=== PATIENT | female | born 1940 | race Hispanic/Latino ===

== ENCOUNTER 2021-07-27 06:32 | Day surgery (SDC) | payer OTHER ==
--- NOTE | 2021-07-22 14:59 | RAD REPORT ---
EXAM DESCRIPTION: David Salazar (2 Views)07/22/2021 2:52 pm CLINICAL HISTORY: Preop for vaginal prolapse repair COMPARISON: None FINDINGS: The lungs appear clear of acute infiltrate. The heart is normal size IMPRESSION: No acute abnormalities displayed
[2021-07-22 15:14] LABS: Absolute Lymphocytes (CBC) 1.7 K/uL (0.7-4.9); MPV 8.3 fL (7.6-11.3); RBC Red Blood Cell Count 3.92 M/uL (3.86-4.86)
[2021-07-22 15:18] LABS: Protime INR 0.92
[2021-07-22 15:23] LABS: Urine Appearance CLEAR (Clear); Urine Bilirubin NEGATIVE (Negative); Urine Blood Trace-intact (Negative); Urine Color YELLOW (Yellow); Urine Glucose NEGATIVE (Negative); Urine Microscopic Reflex ORDER UMIC; Urine Protein NEGATIVE (Negative); Urine Urobilinogen 0.2 mg/dL (0.2-1.0); Urine pH 5.5 (5.0-7.0)
[2021-07-22 15:26] LABS: Urine Bacteria <20 /HPF (<20); Urine RBC <5 /HPF (NONE SEEN)
[2021-07-22 15:31] LABS: Potassium 3.8 mmol/L (3.5-5.1)
--- NOTE | 2021-07-24 14:53 | EKG ---
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
[2021-07-27] MEDS ORDERED: Ringers Lactate 1,000 ML IV ONE (06:43)
[2021-07-27] MEDS ORDERED: CEFAZOLIN SODIUM 1 GM/VIAL ONE (07:01)
[2021-07-27] MEDS ORDERED: NA CHLORIDE 0.9% 100 ML IV ONE (07:02)
[2021-07-27] MEDS ORDERED: LIDOCAINE 1% W/EPI 1:100,000 MDV 20 ML VIAL ONE (07:02)
[2021-07-27] MEDS ORDERED: FENTANYL CITR 100 MCG/2 ML ONE ×2 (07:17→09:07)
[2021-07-27] MEDS ORDERED: propofoL 200 MG/20 ML VIAL IV ONE (07:18)
[2021-07-27] MEDS ORDERED: MIDAZOLAM HCL 2 MG/2 ML INJ ONE (07:19)
[2021-07-27] MEDS ORDERED: ONDANSETRON 4 MG/2 ML VIAL ONE (07:19)
[2021-07-27] MEDS ORDERED: LIDOCAINE 2% MPF 5 ML VIAL ONE (07:19)
[2021-07-27] MEDS ORDERED: GLYCOPYRROLATE 0.2 MG/ML SYR ONE ×2 (07:20)
[2021-07-27] MEDS ORDERED: ROCURONIUM 50 MG/5 ML VIAL IV ONE (07:20)
[2021-07-27] MEDS ORDERED: EPHEDRINE SULF 50 MG/ML VIAL ONE (07:20)
[2021-07-27] MEDS ORDERED: NEOSTIGMINE 1 MG/ML -10 ML VIAL ONE (07:21)
[2021-07-27] MEDS: CEFAZOLIN/SWI 2gm 2 GM/20 ML SYR ONE ×2 (07:40→07:44)
[2021-07-27] MEDS: VASOPRESSIN 20 UNIT/ML VIAL ONE ×2 (07:43→08:18)
[2021-07-27] MEDS ORDERED: dexAMETHasone 10 MG/ML VIAL ONE (08:28)
[2021-07-27] MEDS ORDERED: PROMETHAZINE INJ 25 MG/ML AMP IV PRN (10:22)
[2021-07-27] MEDS ORDERED: MORPHINE 2 MG/ML SYR IV PRN (10:22)
--- NOTE | 2021-07-27 10:38 | P.BOP ---
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
[2021-07-27 11:48] VITALS: BMI 23.3
[2021-07-27] MEDS: ACETAMINOPHEN 500 MG TAB PO PRN ×3 (12:00→20:37)
--- NOTE | 2021-07-27 13:45 | OP ---
Date of Procedure: 07/27/2021 Surgeon: Mariia Saucedo MD Conservation Assistant: Sindy New. 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 Procedures Performed: Complete colpocleisis, posterior wall repair, perineal body and perineocele re pair, then mid urethral sling through a transobturator approach (FAIZAN sling), cystoscopy. Estimated Blood Loss: Minimal. Urine Output: 100. Specimens: None. Anesthesia: General. Complications: No complications. Drains: Pool catheter. Disposition: Transferred to the recovery room in a stable condition. Findings: -2, +1, +3, 4.5, moderate; 5.5, 0, +2, and apical defect was prominent. There was a stitc h granuloma at the apical aspect and then significant amount of scarring and lack of good connective tissue in the anterior and posterior compartments on the proximal parts. After the procedure was completed, the vaginal length was only 2.5 cm. The perineal body was well re constructed and the sling was placed without any problems. Procedure In Detail: After informed consent was verified, she was taken back to the OR, placed in [place] fashion on the operating table. 2 g of Ancef were given. SCDs were started. Time-out was done . The patient was placed in a supine fashion on the operating table and general anesthesia was given . She was placed in a dorsal lithotomy position using Martinez stirrups. Lower abdomen, vulva, vagina, and perineum were prepped and draped in a sterile fashion. Pool was placed to drain the bladder an d examination was done and POP-Q was documented. Rectovaginal exam was performed as well to realize the perineocele right above the level of the exter nal sphincter, which was intact. Pool was clamped and retracted superiorly. Trapezoid drawing was made on the anterior wall that was to be de-epithelialized same in the posterior compartment as well. The apex was held with 2 Allis c lamps and this was done. Once the markings were placed making sure that I was proximal to the UVJ, d ilute vasopressin was injected in the anterior compartment first. Then, a 15 blade used to make an i ncision all around the trapezoid marking. Then, vaginal epithelium on the anterior wall was peeled o ff with the help of Allis clamps and a 15 blade. Once this was completely de-epithelialized, then I went to the posterior compartment, similarly levon out the area that was to be denuded, injected with dilute vasopressin. Allis clamps and knife were used to denude this area. Once this was done, there was still about 1.5 to 2 cm length of the posterior wall on left, which had a defect and plan was to bring the perineal body together nicely and the perineocele repair to reconstruct the whole area to prevent recurrence. Then, once the exposure was adequate in the anterior and posterior compartments, 2-0 Vicryl suture wa s taken in a continuous running fashion to invaginate the tiny strip of vaginal epithelium that was l eft on the top at the apex to create almost a channel like area, but for attachment to be adequate fr om the anterior to the posterior wall. In a continuous running fashion, transverse suturing was done and then right lateral all the way to the proximal part of the denuded area. On the opposite side, similar closure was performed with 2-0 Vicryl in a continuous running fashion a nd this invaginated the entire anterior and posterior compartment adequately. Attention was directed to the posterior compartment and dilute vasopressin was injected. A rose-s haped incision was made with the triangle inverted on the perineum and the upper part of the triangle going into the posterior wall with significant scar tissue here as well. Vaginal epithelium was pedro sed from the underlying connective tissue as best as possible. Mostly, there was only a scar that re placed connective tissue and laterally, the perineal body was exposed by dissecting all the way to it , did not go as far as the levators came down onto the perineum itself to dissect the perineocele. E xternal anal sphincter was identified in the distal area. Then, the transverse perinea scars were id entified on the lateral aspects. Then, made sure that the scar was taken down and the skin excised t hat was marked out. Then connected this to the colpocleisis posterior distal margin. Then, vaginal epithelium was raised on either side. A very little bit was excised as there were buttonholes. Then, connective tissue on each side was plicated together without plicating the levators from side t o side with the help of 2-0 Vicryl sutures x4. Once this was done, the perineal body was reconstruct ed with interrupted 2-0 Vicryl as well x3. Then went ahead and started closing the vaginal epithelia l closure of the colpocleisis with a continuous running 2-0 Vicryl suture. In a transverse fashion, this was closed. Then, the suture was brought down to connect the distal part of the repair on the p osterior wall. Once this was repaired, the 2-0 Vicryl was docked. Then, 3-0 Vicryl was taken and cl osure on the perineocele was completed deeply with 3-0 Vicryl, then superficially with a 3-0 chromic. Once all this was closed, there was excellent closure, excellent reconstruction of the perineal bod y and the perineum was restored. Vaginal canal was only about 2.5 cm. No prolapse noted. Mid urethral area was picked up with the help of 2 Allis clamps and injected with dilute vasopressin and dissection carried at a 45-degree angle to the horizontal and vertical planes hugging the inferio r pubic ramus into the obturator space and this was perforated. The tract was widened by opening up the scissors, bringing back. Similar dissection was performed on both sides with the patient in high lithotomy. The wing guide was inserted. Then, the FAIZAN sling was loaded onto the needle and then driven through the obturator space. Once this was passed through the obturator membrane, the wing guide was removed and needle pass taken with the exit point 2 cm lateral to the groin fold, about a cm superior to the horizontal line dropped at the level of the external meatus, similar pass on the opposite side as we ll without any problems. Cystoscopy was performed in the bladder. No evidence of any mesh in the bl adder. Both ureteric orifices were well visualized. No evidence of any other trauma. Bladder was d rained. The sling was tensioned with the help of an Allis clamp in the middle. Once this was well positioned , then the excess sling at the groin was trimmed and flushed with the skin, and then the skin closed with Dermabond. Vaginal epithelial closure after irrigation was with 3-0 Vicryl continuous running s uture. Bladder was drained and Pool was replaced. Instrument, needle, and sponge counts were corre ct at the end of the case. The patient tolerated the procedure well. She will be admitted overnight for observation with restarting her medications and then she will be discharged after a voiding tria l. The patient also understands that she may have a Pool catheter overnight. [place] Voice ID: [id number] Report ID: [id number]
[2021-07-27] MEDS: Ringers Lactate 1,000 ML IV SCH (19:15)
[2021-07-27] MEDS ORDERED: ATORVASTATIN 40 MG TAB PO SCH (21:00)
[2021-07-28] MEDS: Ringers Lactate 1,000 ML IV SCH (03:16)
[2021-07-28] MEDS: ACETAMINOPHEN 500 MG TAB PO PRN ×2 (03:30→07:53)
[2021-07-28 03:55] VITALS: O2SAT 98
[2021-07-28] MEDS ORDERED: LEVOTHYROXINE SOD 0.075 MG TAB PO SCH (06:00)
[2021-07-28 07:31] VITALS: BP 135/64; TEMP 97.3
[2021-07-28] MEDS ORDERED: NIFEDIPINE XL 30 MG TABLET PO SCH (09:00)
[2021-07-28] MEDS ORDERED: LACTOBACILLUS/ACIDOPHILUS TAB PO SCH (09:00)
[2021-07-28] MEDS ORDERED: COLLAGEN HYDR PO SCH (09:00)
[2021-07-28] MEDS ORDERED: ASCORBIC ACID PO SCH (09:00)
[2021-07-28] MEDS ORDERED: ENALAPRIL MALEATE 20 MG PO SCH (09:00)
[2021-07-28] MEDS ORDERED: ASPIRIN EC 81 MG TAB PO SCH (09:00)
[2021-07-28] MEDS ORDERED: LACTOBACILLUS ACIDOPHILUS PO SCH (09:00)
[2021-07-28] MEDS ORDERED: PROPYLENE GLYCOL OPTH SCH (09:00)
[2021-07-28] MEDS ORDERED: ENALAPRIL 10 MG TAB PO SCH (09:00)
[2021-07-28] MEDS ORDERED: HOME MED 1 EA UNK (Magnesium Oxide [Magnesium] 250 MG Tablet) PO SCH (09:00)
[2021-07-28] MEDS ORDERED: HOME MED 1 EA UNK (Estradiol [Estradiol] 42.5 GM Cream.Appl) VAG SCH (17:00)
== END 2021-07-28 10:45 | disposition home or self-care (01) ==
LOC: OR 06:32 → 2ND-WC 10:44 → OR 07-28 10:45
PROVIDERS: ATTEND Obstetrics & Gynecology
PROC: 0JQC0ZZ Repair Pelvic Region Subcutaneous Tissue and Fascia, Open Approach (ICD-10-PCS; 2021-07-27)
PROC: 0HQ9XZZ Repair Perineum Skin, External Approach (ICD-10-PCS; 2021-07-27)
PROC: 0TSD0ZZ Reposition Urethra, Open Approach (ICD-10-PCS; 2021-07-27)
PROC: 0ULG7ZZ Occlusion of Vagina, Via Natural or Artificial Opening (ICD-10-PCS; principal; 2021-07-27 07:30)
DX: N39.3 Stress incontinence (female) (male) (principal); N81.6 Rectocele; N81.81 Perineocele; N81.4 Uterovaginal prolapse, unspecified; Z20.822 Contact with and (suspected) exposure to COVID-19
CPT/HCPCS: 93005; 85025; 80048; 36415; 86900; 86850; 85610; 86901; 85730; 71046; 94010; 57120; 57250; 57288; U0003; J2704; J2710; J3010 ×2; J1100; J0690 ×2; J7120 ×4; J2405; 81003; 81015; J2250